=== PATIENT | female | born 1990 | race Hispanic/Latino ===

== ENCOUNTER 2021-02-17 00:38 | Emergency (ER) | payer OTHER ==
[~2021-02-17] VITALS: Ht 157.5 cm; Wt 64.5 kg
[2021-02-17 07:14] LABS: BASO % 0.4 % (0.0-1.0); EOS # 0.1 10^3/uL (0.0-0.5); EOS % 1.7 % (0.0-3.0); HEMATOCRIT 37.7 % (36.0-47.0); HEMOGLOBIN 12.6 g/dl (12.0-15.5); LYMPH % 37.5 % (24.0-44.0); MEAN CORPUSCULAR HGB CONC 33.4 g/dl (32.0-36.5); MEAN CORPUSCULAR VOLUME 92.6 fl (80.0-96.0); MONO # 0.5 10^3/uL (0.0-0.8); MONO % 9.4 % (2.0-8.0); NEUTROPHILS # 2.7 10^3/uL (1.5-8.5); NEUTROPHILS % 50.8 % (36.0-66.0); PLATELET COUNT, AUTOMATED 252 10^3/uL (150-450); RED BLOOD COUNT 4.07 10^6/uL (4.00-5.40); WHITE BLOOD COUNT 5.3 10^3/uL (4.0-10.0)
[2021-02-17 07:25] LABS: INR 1.38; PARTIAL THROMBOPLASTIN TIME 31.5 SECONDS (25.9-37.0); PROTHROMBIN TIME 17.4 SECONDS (12.7-14.5)
[2021-02-17 07:37] LABS: ALBUMIN 3.9 GM/DL (3.2-5.2); BILIRUBIN,DIRECT 0.3 MG/DL (0.0-0.2); BILIRUBIN,TOTAL 1.2 MG/DL (0.2-1.0); TOTAL PROTEIN 6.9 GM/DL (6.4-8.2)
[2021-02-17] MEDS ORDERED: COLA100C5 PO (07:55)
[2021-02-17] MEDS ORDERED: ANUS2.5C2 TOP (07:55)
[2021-02-17 08:08] VITALS: BP 117/70
== END 2021-02-17 08:10 | disposition home or self-care (01) ==
LOC: M ED 00:38
DX: K64.9 Unspecified hemorrhoids (principal); E80.7 Disorder of bilirubin metabolism, unspecified; F17.200 Nicotine dependence, unspecified, uncomplicated